=== PATIENT | male | born 1935 | race Caucasian/White ===

== ENCOUNTER → 2017-10-19 | Outpatient (CLI) | payer OTHER ==
[~2017-10-19] VITALS: Ht 182.9 cm; Wt 92.1 kg
[~2017-10-19] MED LIST: LIPITOR40 MG; LOVAZA1 G; MAXITROL EYE DRO5 ML OP
== END | disposition home or self-care (01) ==
LOC: PPHC 10:39
DX: A08.8 Other specified intestinal infections (principal)

== ENCOUNTER 2017-10-27 10:11 | Outpatient (CLI) | payer OTHER | END 2017-10-27 11:38 | disposition home or self-care (01) | LOC: RAD 10:11 | DX: H25.12 Age-related nuclear cataract, left eye (principal) ==

== ENCOUNTER 2018-01-10 09:37 | Emergency (ER) | payer OTHER ==
[~2018-01-10] VITALS: Ht 188 cm; Wt 92.1 kg
[2018-01-10] MEDS ORDERED: ASA325 MG PO (09:47)
[2018-01-10] MEDS ORDERED: LOSARTAN-HCTZ1 EACH PO (09:48)
[2018-01-10] MEDS ORDERED: OMEPRAZOLE20 MG PO (09:48)
[2018-01-10] MEDS ORDERED: CELEBREX100 MG PO (12:12)
[2018-01-10] MEDS ORDERED: SKELAXIN800 MG PO (12:12)
[2018-01-10] MEDS ORDERED: ORPHENADRINE C100 MG PO (12:12)
== END 2018-01-10 12:19 ==
LOC: ER 09:37
DX: S00.03XA Contusion of scalp, initial encounter (principal); S20.212A Contusion of left front wall of thorax, initial encounter; S50.812A Abrasion of left forearm, initial encounter; S80.212A Abrasion, left knee, initial encounter; S80.211A Abrasion, right knee, initial encounter; W01.198A Fall on same level from slipping, tripping and stumbling with subsequent striking against other object, initial encounter; Y93.01 Activity, walking, marching and hiking; Y92.830 Public park as the place of occurrence of the external cause; Y99.8 Other external cause status

== ENCOUNTER → 2018-01-26 | Outpatient (CLI) | payer OTHER ==
[~2018-01-26] MED LIST changes: +ASA325 MG PO; +CELEBREX100 MG PO; +LOSARTAN-HCTZ1 EACH PO; +OMEPRAZOLE20 MG PO; +ORPHENADRINE C100 MG PO; +SKELAXIN800 MG PO
== END | disposition home or self-care (01) ==
LOC: NUCLEAR 10:00
DX: S22.43XA Multiple fractures of ribs, bilateral, initial encounter for closed fracture (principal)
CPT/HCPCS: 78320; 78306; A9503

== ENCOUNTER 2018-03-28 09:14 | Outpatient (CLI) | payer OTHER | END 2018-03-28 09:18 | disposition home or self-care (01) | LOC: SONOGRAMA 09:14 → MAMO-SONO 09:15 → SONOGRAMA 09:18 | DX: E03.8 Other specified hypothyroidism (principal); E04.1 Nontoxic single thyroid nodule; E04.8 Other specified nontoxic goiter ==

== ENCOUNTER 2018-05-30 08:07 | Outpatient (CLI) | payer OTHER | END 2018-05-30 08:09 | disposition home or self-care (01) | LOC: SONOGRAMA 08:07 | DX: R31.9 Hematuria, unspecified (principal) ==

== ENCOUNTER 2018-07-26 13:51 | Emergency (ER) | payer OTHER ==
[~2018-07-26] VITALS: Ht 188 cm; Wt 90.7 kg
== END 2018-07-26 15:03 | disposition home or self-care (01) ==
LOC: ER 13:51
DX: L27.1 Localized skin eruption due to drugs and medicaments taken internally (principal); T42.1X5A Adverse effect of iminostilbenes, initial encounter; Y92.89 Other specified places as the place of occurrence of the external cause

== ENCOUNTER 2018-12-13 14:40 | Outpatient (CLI) | payer OTHER | END 2018-12-13 15:48 | disposition home or self-care (01) | LOC: RAD 14:40 | DX: I11.9 Hypertensive heart disease without heart failure (principal) ==

== ENCOUNTER 2019-04-05 10:21 | Outpatient (CLI) | payer OTHER | END 2019-04-05 10:35 | disposition home or self-care (01) | LOC: RAD 10:21 | DX: R05 Cough (principal) ==

== ENCOUNTER 2019-04-05 11:14 | Outpatient (CLI) | payer OTHER | END 2019-04-05 16:51 | disposition home or self-care (01) | LOC: LAB 11:14 | DX: J11.1 Influenza due to unidentified influenza virus with other respiratory manifestations (principal) ==

== ENCOUNTER 2019-04-09 10:00 | Outpatient (CLI) | payer OTHER ==
[2019-04-13] MEDS ORDERED: CALCIUM500 M1 (07:39)
[2019-04-13] MEDS ORDERED: VITAMINA C (07:40)
== END 2019-04-09 10:07 | disposition home or self-care (01) ==
LOC: SONOGRAMA 10:00 → MAMO-SONO 10:15
DX: E04.2 Nontoxic multinodular goiter (principal)

== ENCOUNTER → 2019-04-13 | Emergency (ER) | payer OTHER ==
[~2019-04-13] VITALS: Ht 182.9 cm; Wt 90.7 kg
[~2019-04-13] MED LIST changes: +CALCIUM500 M1; +VITAMINA C
== END | disposition home or self-care (01) ==
LOC: ER 07:20
DX: S90.32XA Contusion of left foot, initial encounter (principal); S90.31XA Contusion of right foot, initial encounter; R60.0 Localized edema; I77.89 Other specified disorders of arteries and arterioles; X58.XXXA Exposure to other specified factors, initial encounter; Y93.89 Activity, other specified; Y92.89 Other specified places as the place of occurrence of the external cause; Y99.8 Other external cause status

== ENCOUNTER 2019-05-30 09:12 | Outpatient (CLI) | payer OTHER | END 2019-05-30 09:14 | disposition home or self-care (01) | LOC: SONOGRAMA 09:12 → MAMO-SONO 09:15 | DX: R31.29 Other microscopic hematuria (principal) ==

== ENCOUNTER 2019-11-10 11:43 | Emergency (ER) | payer OTHER ==
[~2019-11-10] VITALS: Ht 188 cm; Wt 90.7 kg
== END 2019-11-10 14:25 | disposition home or self-care (01) ==
LOC: ER 11:43
DX: B34.9 Viral infection, unspecified (principal)

== ENCOUNTER 2020-03-04 10:53 | Outpatient (CLI) | payer OTHER | END 2020-03-04 11:05 | disposition home or self-care (01) | LOC: MAMO-SONO 10:53 → SONOGRAMA 10:53 | DX: E04.8 Other specified nontoxic goiter (principal) ==

== ENCOUNTER → 2020-07-16 | Outpatient (CLI) | payer OTHER | END | disposition home or self-care (01) | LOC: MAMO-SONO 07:15 → SONOGRAMA 07:45 | PROVIDERS: ATTEND Urology | DX: C61 Malignant neoplasm of prostate (principal); R31.0 Gross hematuria ==

== ENCOUNTER 2020-10-29 10:58 | Outpatient (CLI) | payer OTHER | END 2020-10-29 13:12 | disposition home or self-care (01) | LOC: SONOGRAMA 10:58 | PROVIDERS: ATTEND Internal Medicine Gastroenterology | DX: N40.0 Benign prostatic hyperplasia without lower urinary tract symptoms (principal); R10.13 Epigastric pain; R30.0 Dysuria ==

== ENCOUNTER 2020-12-10 09:50 | Outpatient (CLI) | payer OTHER | END 2020-12-10 09:52 | disposition HB | LOC: RAD 09:50 | DX: J45.998 Other asthma (principal); M94.0 Chondrocostal junction syndrome [Tietze]; I10 Essential (primary) hypertension; H26.8 Other specified cataract; U07.1 COVID-19 ==

== ENCOUNTER → 2021-02-09 | Outpatient (CLI) | payer OTHER | END | disposition home or self-care (01) | LOC: TOM 11:04 | PROVIDERS: ATTEND Urology | DX: R31.1 Benign essential microscopic hematuria (principal); N20.0 Calculus of kidney ==

== ENCOUNTER 2021-03-23 14:15 | Outpatient (CLI) | payer OTHER | END 2021-03-23 14:24 | disposition home or self-care (01) | LOC: SONOGRAMA 14:15 → MAMO-SONO 14:15 → SONOGRAMA 14:24 | PROVIDERS: ATTEND Internal Medicine Sports Medicine | DX: E04.1 Nontoxic single thyroid nodule (principal) ==

== ENCOUNTER 2021-06-10 08:00 | Outpatient (CLI) | payer OTHER | END 2021-06-10 08:30 | disposition home or self-care (01) | LOC: PPH VACUNA 08:00 | DX: Z23 Encounter for immunization (principal) ==

== ENCOUNTER 2022-02-28 08:25 | Outpatient (CLI) | payer OTHER | END 2022-02-28 08:28 | disposition home or self-care (01) | LOC: SONOGRAMA 08:25 | PROVIDERS: ATTEND Urology | DX: C61 Malignant neoplasm of prostate (principal); R31.1 Benign essential microscopic hematuria ==

== ENCOUNTER → 2022-10-22 | Emergency (ER) | payer OTHER ==
[~2022-10-22] MED LIST changes: +ATORVASTATIN CA40 MG PO; +HYDRODIURIL12.5 MG PO
== END | disposition left against medical advice (07) ==
LOC: ER 14:23
DX: I10 Essential (primary) hypertension (principal)

== ENCOUNTER 2022-10-23 12:48 | Emergency (ER) | payer OTHER ==
[~2022-10-23] VITALS: Ht 188 cm; Wt 90.7 kg
[~2022-10-23 12:48] MED LIST changes: -ATORVASTATIN CA40 MG PO; -HYDRODIURIL12.5 MG PO
[2022-10-23] MEDS ORDERED: HYDRODIURIL12.5 MG PO (13:28)
[2022-10-23] MEDS ORDERED: ATORVASTATIN CA40 MG PO (13:29)
== END 2022-10-23 15:13 | disposition home or self-care (01) ==
LOC: ER 12:48
DX: I10 Essential (primary) hypertension (principal); Z86.73 Personal history of transient ischemic attack (TIA), and cerebral infarction without residual deficits; E78.5 Hyperlipidemia, unspecified; Z88.0 Allergy status to penicillin

== ENCOUNTER 2022-12-20 08:58 | Outpatient (CLI) | payer OTHER ==
[~2022-12-20 08:58] MED LIST changes: +ATORVASTATIN CA40 MG PO; +HYDRODIURIL12.5 MG PO
== END 2022-12-20 09:02 | disposition home or self-care (01) ==
LOC: SONOGRAMA 08:58
PROVIDERS: ATTEND Urology
DX: C61 Malignant neoplasm of prostate (principal); R31.1 Benign essential microscopic hematuria

== ENCOUNTER → 2023-03-09 | Outpatient (CLI) | payer OTHER | END | disposition home or self-care (01) | LOC: SONOGRAMA 08:35 | PROVIDERS: ATTEND Internal Medicine Sports Medicine | DX: E04.8 Other specified nontoxic goiter (principal) ==

== ENCOUNTER 2023-03-16 10:52 | Outpatient (CLI) | payer OTHER | END 2023-03-16 10:54 | disposition home or self-care (01) | LOC: SONOGRAMA 10:52 | PROVIDERS: ATTEND Pathology Anatomic Pathology & Clinical Pathology | DX: D44.0 Neoplasm of uncertain behavior of thyroid gland (principal); E07.9 Disorder of thyroid, unspecified ==

== ENCOUNTER → 2023-06-29 | Outpatient (CLI) | payer OTHER | END | disposition home or self-care (01) | LOC: RAD 11:37 | PROVIDERS: ATTEND Internal Medicine | DX: I10 Essential (primary) hypertension (principal) ==

== ENCOUNTER 2023-08-22 10:08 | Outpatient (CLI) | payer OTHER | END 2023-08-22 10:13 | disposition home or self-care (01) | LOC: SONOGRAMA 10:08 | PROVIDERS: ATTEND Internal Medicine Sports Medicine | DX: E04.2 Nontoxic multinodular goiter (principal) ==

== ENCOUNTER 2023-11-09 14:47 | Outpatient (CLI) | payer OTHER | END 2023-11-09 14:52 | disposition home or self-care (01) | LOC: RAD 14:47 | PROVIDERS: ATTEND Internal Medicine Sports Medicine | DX: M54.50 Low back pain, unspecified (principal) ==

== ENCOUNTER → 2024-01-16 | Emergency (ER) | payer OTHER ==
[~2024-01-16] VITALS: Ht 188 cm; Wt 89.8 kg
[~2024-01-16] MED LIST changes: +OMEGA 3 1,0001 EACH PO
== END | disposition left against medical advice (07) ==
LOC: ER 17:12
DX: Z53.21 Procedure and treatment not carried out due to patient leaving prior to being seen by health care provider (principal)

== ENCOUNTER 2024-12-24 08:47 | Outpatient (CLI) | payer OTHER | END 2024-12-24 08:50 | disposition home or self-care (01) | LOC: SONOGRAMA 08:47 | PROVIDERS: ATTEND Urology | DX: R31.1 Benign essential microscopic hematuria (principal) ==

== ENCOUNTER 2025-04-21 08:58 | Outpatient (CLI) | payer OTHER | END 2025-04-21 09:58 | disposition home or self-care (01) | LOC: WOUND MED 08:58 → WOUND CARE 08:58 → WOUND MED 09:58 | PROVIDERS: ATTEND Specialist | DX: S91.219A Laceration without foreign body of unspecified toe(s) with damage to nail, initial encounter (principal); L97.522 Non-pressure chronic ulcer of other part of left foot with fat layer exposed; I10 Essential (primary) hypertension; E11.9 Type 2 diabetes mellitus without complications | CPT/HCPCS: 11042; A4927; A6021; A6219; A6223 ==

== ENCOUNTER 2025-09-02 10:41 | Outpatient (CLI) | payer OTHER | END 2025-09-02 10:43 | disposition home or self-care (01) | LOC: SONOGRAMA 10:41 | PROVIDERS: ATTEND Internal Medicine Sports Medicine | DX: E04.1 Nontoxic single thyroid nodule (principal); E03.9 Hypothyroidism, unspecified ==